=== PATIENT | female | born 1980 | race Caucasian/White ===

== ENCOUNTER 2022-10-14 07:24 | Emergency (ER) | payer BC, SELFPAY ==
--- NOTE | ~2022-10-14 | XR_ITS ---
EXAMINATION: XR HUMERUS, RIGHT CLINICAL INFORMATION: Right humerus pain following a fall. COMPARISON: None available. TECHNIQUE: AP and lateral views of the right humerus. FINDINGS: The bones and soft tissues are normal. No fracture. Imaged portions of the shoulder and elbow are unremarkable. XR/XR humerus RT IMPRESSION: Unremarkable examination.
[2022-10-14 07:33] VITALS: BP 117/94; PULSE 85; RESP 18; TEMP 36.9; O2SAT 98; BMI 31.9
--- NOTE | 2022-10-14 07:59 | ED_ITS ---
HPI - Extremity Problem General Chief complaint: Extremity Injury, Upper Stated complaint: R arm inj 10/13, broken? Time Seen by Provider: 10/14/22 07:42 Source: patient Mode of arrival: ambulatory Limitations: no limitations History of Present Illness HPI Narrative: 42 yo female right hand dominant with no known medical history here with complaints of right shoulder pain which began last evening after a fall. Per patient she was at a wedding, on the dance floor with plans to run and dive with her hands in front of her to slide underneath someone's legs. While running she changed her mind last minute and fall striking her right shoulder on ground while her arm was held in adduction against her body. Denies hitting head or LOC. Patient reports all night her arm was in pain. Took motrin FERRULER. Denies any weakness, numbness, tingling. Does feel her ROM is limited. Related Data Allergies Allergy/AdvReac Type Severity Reaction Status Date / Time No Known Allergies Allergy Verified 10/14/22 07:32 Review of Systems Review of Systems: Yes all other systems are reviewed and are negative Constitutional: Constitutional: Reports no additional constitutional complaints, Denies body ache(s), Denies chills, Denies fever(s), Denies headache(s) and Denies weakness Eyes: Eyes: Reports no additional eye complaints and Denies change in vision ENT: Reports system reviewed and no additional complaints, except as documented, Denies dizziness, Denies headache(s), Denies nasal congestion, Denies nasal discharge and Denies neck pain Cardiovascular: Cardiovascular: Reports no additional cardiovascular complaints, Denies chest pain, Denies leg edema and Denies dyspnea Respiratory: Respiratory: Reports no additional respiratory complaints, Denies cough and Denies dyspnea Gastrointestinal: Gastrointestinal: Reports no additional gastrointestinal complaints, Denies abdominal pain, Denies diarrhea, Denies nausea and Denies vomiting Genitourinary: Genitourinary: Reports no additional female genitourinary complaints and Denies urinary incontinence Musculoskeletal: Musculoskeletal: Reports no additional musculoskeletal complaints, Denies back pain, Reports arthralgias, Denies joint swelling, Reports limited range of motion, Denies neck pain, Denies numbness and Denies tingling Integumentary/Breasts: Skin/Breast: Reports system reviewed and no additional complaints, except as docu and Denies rash Neurologic: Reports system reviewed and no additional complaints, except as documented, Denies Abnormal speech present, Denies dizziness, Denies headache(s), Denies numbness, Denies tingling and Denies weakness PMFSH Past Medical History Attestation statement: The following information was validated with the patient. Source: old records reviewed and nursing notes reviewed Social History Social History Advance Directives: No Physical Exam Vital Signs: Vital Signs: Last Vital Signs Temp 98.5 F 10/14/22 07:33 Pulse 85 10/14/22 07:33 Resp 18 10/14/22 07:33 BP 117/94 H 10/14/22 07:33 Pulse Ox 98 10/14/22 07:33 O2 Del Method Room Air 10/14/22 07:33 BMI result Body Mass Index 31.9 Const: General: cooperative, healthy appearing, comfortable and no acute distress Orientation/consciousness: patient oriented x3 Limitations: no limitations HEENT: Head: Yes normal to inspection Ears: hearing grossly normal bilaterally Eyes: General: appearance normal, both eyes and all related structures Pupils: Equal, round and reactive pupils present Neck: Neck: Yes normal visual inspection Chest: Chest palpation & inspection: normal inspection of the chest Resp: Effort & Inspection: normal respiratory effort Cardio: Peripheral pulses: Peripheral pulses 2+ throughout Back/Spine/Pelvis: Thoracic/Lumbar Spine: thoracic and lumbar spine normal to inspection Skin: General skin exam: no rashes or lesions noted Neuro: General: patient oriented x3, no focal motor deficits and normal sensation to monofilament Cranial nerves: Yes Equal, round and reactive pupils present Cognition (Neuro): normal cognition Speech: No Abnormal speech present Gait exam (Neuro): Normal gait present Motor exam (neuro): 5/5 motor strength present throughout Extrem: Other: Pain on palpation over the right proximal humerus with limited abduction d/t pain. No palpation over the posterior shoulder, clavicle, elbow, wrist or hand. FROM of elbow/wrist/hand. 2+radial/ulnar pulses. Sensation intact distally. General: Yes normal to inspection Course Course Course Narrative: X-ray shows no acute fracture. Likely contusion. I do consider underlying rotator cuff injury as there is some limited range of motion. Therefore I recommend the patient follow-up with her primary care doctor for any persistent symptoms as she may need to see orthopedics outpatient. [facility]ed [facility] signs and symptoms of when to return to the emergency room. Comfortable plan for discharge home. Medical Decision Making Medical Decision Making MDM Narrative: 42 yo female right hand dominant here with right shoulder pain/limited ROM after fall which occurred last evening. On exam TTP over right shoulder with limited abduction Will obtain x-rays Differential Diagnosis Differential Diagnoses: The differential diagnosis associated with the presentation includes fracture, dislocation, sprain, contusion low concern for vascular injury Independent Interpretation I performed an independent interpretation of an: Plain X-Ray Interpretation: I independently reviewed the x-ray and agree with the radiologist report Radiology Impression Discussion of test interpretation with radiology: I have reviewed the radiologist's reading. Radiologist Impression: [address] [address] XRay Report Signed Patient: Maranda Kyle MR#: [id number] : 1980 Acct:[id number] Age/Sex: 42 / F ADM Date: 10/14/22 Loc: .ED Attending Dr: Ordering Physician: Sandra Denney NP Date of Service: 10/14/22 Procedure(s): XR humerus RT Accession Number(s): [id number] cc: Sandra Denney NP~ EXAMINATION: XR HUMERUS, RIGHT CLINICAL INFORMATION: Right humerus pain following a fall.? COMPARISON: None available.? TECHNIQUE: AP and lateral views of the right humerus. FINDINGS: The bones and soft tissues are normal. No fracture. Imaged portions of the shoulder and elbow are unremarkable.? XR/XR humerus RT IMPRESSION: Unremarkable examination. Discharge Plan Discharge Clinical Impression: Contusion of right shoulder Patient Disposition: Home, Self-Care Instructions: Contusion in Adults (ED) Additional Instructions: X-rays show no fracture Ice to the area Sling for comfort Alternate Motrin and Tylenol for pain as needed For any persistent symptoms greater than 5 days follow-up with her primary care doctor as you may need to see orthopedics Referrals: Angel Mac MD [Primary Care Provider] - 1 week Stand Alone Forms: Work/School Release
== END 2022-10-14 09:50 | disposition home or self-care (01) ==
PROVIDERS: Emergency Provider Emergency Medicine Emergency Medical Services; PCP Internal Medicine
DX: S40.011A Contusion of right shoulder, initial encounter (principal); W22.09XA Striking against other stationary object, initial encounter; Y93.41 Activity, dancing; Y92.511 Restaurant or cafe as the place of occurrence of the external cause; Y99.8 Other external cause status
CPT/HCPCS: 73060; 99283

== ENCOUNTER 2024-03-13 12:06 | Outpatient (AMB) | payer BC, SELFPAY ==
[2024-03-13 12:47] VITALS: BP 122/80; PULSE 80; TEMP 36.8; O2SAT 98; BMI 30.5
--- NOTE | 2024-03-13 12:47 | MHC.OFFWIV ---
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 While every effort has been made to ensure accuracy, jewelry consultant errors may have been included. The patient is a 43 year old female who presents to the clinic today with right-sided breast pain for the past 2 weeks. She notes that she had silicone breast implants approximately 26 years ago, and about 2 weeks ago she woke up with what appeared to be a deflation of the right breast implant. Since that time she has developed some pain in the right breast. She is not located any lumps. She recently change her primary care provider over to [facility] as of this morning, and has a new established patient visit scheduled for next year. Review of Systems Const All systems reviewed & are unremarkable except as noted in HPI and below Physical Exam Vital Signs: Last Vital Signs Temp 98.3 F 03/13/24 12:47 Pulse 80 03/13/24 12:47 BP 122/80 03/13/24 12:47 Pulse Ox 98 03/13/24 12:47 BMI result Body Mass Index 30.5 Const General: cooperative, healthy appearing, comfortable, no acute distress and alert Orientation/consciousness: patient oriented x3 Limitations: no limitations Chest Other: Normal breast exam on left with palpable implant in place. Right breast visibly smaller than left, with no palpable implant, and masslike mobile structure approximately 1 cm, irregular borders, about 2 cm from nipple line at 12:00 o'clock, question implant capsule. Breast/axilla palpation: normal palpation of the axillae and no axillary lymphadenopathy Resp Effort & Inspection: normal respiratory effort and able to speak in complete sentences Skin General skin exam: no rashes or lesions noted, elasticity normal and turgor normal Neuro General: patient oriented x3 Psych Appearance: grossly normal Mental Status: mental status grossly normal Speech and movement: Normal speech and movement present Affect: normal affect Assessment & Plan Assessment & Plan (1) Rupture of implant of right breast: Code(s): T85.43XA - Leakage of breast prosthesis and implant, initial encounter Qualifiers: Encounter type: initial encounter Qualified Code(s): T85.43XA - Leakage of breast prosthesis and implant, initial encounter Plan: There is concern for rupture of her right breast implant. Patient does require to have imaging to evaluate for source, they order for this imaging does need to come from her primary care provider. Given that she is just establishing with a new primary care provider, we were able to secure an appointment for tomorrow with her new PCP to review treatment plan including image orders. Plan See above for full details and plan. Coding Level of Care Code Est Pt Level 4 (51120) Diagnoses Rupture of implant of right breast, initial encounter T85.43XA Encounter type: initial encounter
== END 2024-03-13 13:16 | disposition home or self-care (01) ==
PROVIDERS: PCP Internal Medicine; Visit Provider Registered Nurse
DX: T85.43XA Leakage of breast prosthesis and implant, initial encounter (principal)

== ENCOUNTER → 2024-03-13 12:06 | Outpatient (BNVA) | payer BC, SELFPAY | PROVIDERS: PCP Internal Medicine; Visit Provider Registered Nurse ==

== ENCOUNTER 2024-03-14 10:57 | Outpatient (AMB) | payer BC, SELFPAY ==
--- NOTE | 2024-03-14 11:00 | MHC.PC.OV ---
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 She complains of R breast ruptured implant for 2 weeks. Patient would like to see a plastic surgeon but needs to have a mammogram and ultrasound before the appointment can be made. [facility] Surgical History History of arthroscopic surgery of elbow Hx of section S/P breast augmentation Family History Mother Family history of thyroid problem Father No problems noted. 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 1. Little interest or pleasure in doing things: not at all 2. Feeling down, depressed, or hopeless: not at all 3. Trouble falling or staying asleep, or sleeping too much: not at all 4. Feeling tired or having little energy: not at all 5. Poor appetite or overeating: not at all 6. Feeling bad about yourself - or that you are a failure or have let yourself or your family down: not at all 7. Trouble concentrating on things, such as reading the newspaper or watching television: not at all 8. Moving or speaking so slowly that other people could have noticed. Or the opposite - being so fidgety or restless that you have been moving around a lot more than usual: not at all 9. Thoughts that you would be better off or of hurting yourself in some way: not at all Total score: 0 Depression Screening Interpretation: Negative Depression Screening Done: Yes 57290 - PHQ-9 Billing: Yes Source: Developed by Drs. Nathan Chavez, Lillian Velazquez, Kan Quinones and colleagues, with an educational nii from [email or web address]. Thrive Questionnaire Date Thrive assessed: 03/14/24 I am a: Patient What is your living situation today?: I have a steady place to live Within the past 12 months, did the food you bought not last and you didn't have the money to get more?: Never true Within the past 12 months, did you worry whether your food would run out before you got money to buy more?: Never true Do you have trouble paying for medicines?: No Do you have trouble getting transportation to medical appointments?: No Do you have trouble paying your heating and electricity bill?: No Do you have trouble taking care of your child, family member or friend?: No Do you have trouble with day-to-day activities such as bathing, preparing meals, shopping, managing finances, etc.?: No Are you currently unemployed and looking for a job?: No Are you interested in more education?: No Please select the resources that you would like help with: None Currently or been in a relationship where the following occur: No concerns reported THRIVE Score: 0 AUDIT C Alcohol Use Questionnaire (AUDIT-C) 1. How often do you have a drink containing alcohol?: Monthly or less 2. How many drinks containing alcohol do you have on a typical day when you are drinking?: 1 or 2 3. How often do you have six or more drinks on one occasion?: Never Total Score: 1 Score Reviewed/Action Taken: Yes BOSTON-7 AMB Questionnaire BOSTON-7 Date BOSTON - 7 assessed: 03/14/24 Feeling nervous, anxious, or on edge: 0 = Not at all Not being able to stop or control worryin = Not at all Worrying too much about different things: 0 = Not at all Trouble relaxin = Not at all Being so restless that it is hard to sit still: 0 = Not at all Becoming easily annoyed or irritable: 0 = Not at all Feeling afraid as if something awful might happen: 0 = Not at all Total BOSTON-7 score (0-4 normal; 5-9 mild; 10-14 moderate; 15-21 severe): 0 Source: Developed by Drs. Nathan Chavez, Lillian Velazquez, Kan Quinones and colleagues, with an educational nii from [email or web address]. BOSTON-7 Assessment Billing BOSTON-7 Assessment Tool: BOSTON-7 Assessment 06853 Review of Systems Const All systems reviewed & are unremarkable except as noted in HPI and below Card Reports no additional complaints Resp Reports no additional complaints GI Reports no additional complaints Reports no additional complaints Musc Reports no additional complaints Physical exam (Primary Care) Vital Signs: Last Vital Signs Pulse 72 03/14/24 11:01 BP 118/72 03/14/24 11:01 Pulse Ox 98 03/14/24 11:01 Oxygen Delivery Method Room Air 03/14/24 11:01 BMI result Body Mass Index 30.6 Tobacco/Smoking Status: Tobacco use Status Tobacco use date assessed 03/14/24 03/14/24 11:04 Patient Tobacco Use Status Never used Tobacco 03/14/24 11:13 e-Cigarette/Vaping Use Never Used 03/14/24 11:13 PHQ-9: PHQ-9 Score PHQ-9: Total score 0 03/14/24 11:25 Depression Screening Interpretation: Negative Thrive Assessment: Date of Thrive Assessment Date Thrive assessed 03/14/24 03/14/24 11:05 Currently or been in a relationship where the following occur: No concerns reported Const General: no acute distress HENMT Face and sinus: Yes normal facial exam Eyes General: appearance normal, both eyes and all related structures Neck Neck: Yes supple Chest Breast/axilla inspection: abnormal inspection of the breast (There is decreased size and irregularity of the right breast, no masses) Breast/axilla palpation: normal palpation of the axillae and no axillary lymphadenopathy Resp Effort & Inspection: normal respiratory effort Auscultation: clear to auscultation bilaterally Cardio Rhythm: regular rhythm Heart sounds: S1 normal heart sound present and S2 normal heart sound present Coding Level of Care Code New Pt Level 3 (03531) Diagnoses Normal pelvic exam Z01. Ruptured right breast implant T85.43XA Additional Codes BOSTON-7 Assessment Billing - BOSTON-7 Assessment Tool: OBSTON-7 Assessment 26631 ([id number]) Assessment & Plan Assessment & Plan (1) Normal pelvic exam: Comment: slip filler pap Code(s): Z.419 - Encounter for gynecological examination (general) (routine) without abnormal findings Category: Medical Plan: Patient is established with slip filler (2) Ruptured right breast implant: Code(s): T85.43XA - Leakage of breast prosthesis and implant, initial encounter Category: Medical Plan: Refer for breast mammogram and right breast ultrasound and patient will be referred to plastic surgeon of her choice Orders: Orders Complete Blood Count Auto Diff Today Z01419 - Encounter for gynecological examination (general) (routine) without abnormal findings Comprehensive Plummer. Panel Fast Today Z01419 - Encounter for gynecological examination (general) (routine) without abnormal findings MM screening mammo unilat LT Today T85.43XA - Leakage of breast prosthesis and implant, initial encounter, Z12.31 - Encounter for screening mammogram for malignant neoplasm of breast US breast RT complete Today T85.43XA - Leakage of breast prosthesis and implant, initial encounter Lipid Panel Today [id number] - Encounter for gynecological examination (general) (routine) without abnormal findings TSH reflex Free T4 Today Z01.419 - Encounter for gynecological examination (general) (routine) without abnormal findings UA w Microscopic Today Z01.419 - Encounter for gynecological examination (general) (routine) without abnormal findings MM diagnostic mammo unilat RT Today T85.43XA - Leakage of breast prosthesis and implant, initial encounter
[2024-03-14 11:01] VITALS: BP 118/72; PULSE 72; O2SAT 98; BMI 30.6
== END 2024-03-14 15:54 | disposition home or self-care (01) ==
PROVIDERS: PCP Internal Medicine; Visit Provider Internal Medicine
DX: T85.43XD Leakage of breast prosthesis and implant, subsequent encounter (principal)

== ENCOUNTER → 2024-03-14 10:57 | Outpatient (BNVA) | payer BC, SELFPAY | PROVIDERS: PCP Internal Medicine; Visit Provider Internal Medicine | DX: T85.43XA Leakage of breast prosthesis and implant, initial encounter (principal) | CPT/HCPCS: 96127 ==

== ENCOUNTER 2024-03-28 14:59 | Outpatient (REF) | payer BC, SELFPAY ==
--- NOTE | ~2024-03-28 | MR_ITS ---
EXAMINATION: MR BREAST WITHOUT , BILATERAL CLINICAL INFORMATION: Leakage of breast prosthesis and implant, initial encounter. COMPARISON: None available. TECHNIQUE: Imaging was performed with a dedicated breast coil. bilateral axial T1 and bilateral axial T2 weighted and STIR sequences were obtained. FINDINGS: The patient's fibroglandular tissue is heterogeneously dense. LEFT BREAST: There is an intact retropectoral saline implant without evidence of rupture. There is an oval T2 bright mass at 3 o'clock retroareolar position measuring 0.9 cm. This has characteristics of a fibroadenoma. (MR sequence #3, image 38/70). The surrounding tissue demonstrates no other masses or suspicious findings in this noncontrast study. There are no additional findings on T2-weighted imaging. RIGHT BREAST: There is a collapsed retropectoral saline implant sitting along the chest wall. The surrounding tissue demonstrates no definite mass or suspicious finding on this noncontrast study. There are no additional findings on T2-weighted imaging. There is no suspicious internal mammary chain or axillary adenopathy. Limited views of the chest and abdomen are unremarkable. MR/MR breast BI wo con IMPRESSION: 1. Right breast with collapsed retropectoral saline implant. Left implant is intact. 2. Oval benign-appearing mass left breast retroareolar 3 o'clock. ASSESSMENT: LEFT BREAST: BI-RADS 2 benign RIGHT BREAST: BI-RADS 2 benign RECOMMENDATIONS: Clinical follow up for the collapsed right saline implant. Electronically signed by: Marek Henry MD 04/16/2024 01:00 PM [facility]
== END 2024-03-28 15:00 | disposition home or self-care (01) ==
LOC: HO.MRI 14:59
PROVIDERS: Visit Provider Internal Medicine
DX: T85.43XA Leakage of breast prosthesis and implant, initial encounter (principal)
CPT/HCPCS: 77047

== ENCOUNTER 2025-02-11 14:47 | Outpatient (AMB) | payer BC, SELFPAY ==
--- NOTE | 2025-02-11 14:51 | A.OFFVIS_ITS ---
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 Supervisor Throwing Department: Supervisor Throwing Department Present (Renetta) Accompanied by: Self / Same As Patient Allergies No Known Allergies Allergy (Verified 02/11/25 14:57) Is last menstrual period known: Yes Last menstrual period: 01/28/25 Post menopausal: No Patient : No HPI Comments Details: Patient is a premenopausal woman presenting for new patient annual examination. 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 She does not experience any hot flashes. Menses every other monthly menses, heavy 2-3d. History of , w/not very improvement. Currently is sexually active. She denies vaginal itching or irritation. STI screening offered; she accepts. She tries to eat healthy and stays active with walking. Denies family history of breast, ovarian or colon cancer. Last pap smear unknown greater than 5 years ago, negative. Mammogram: 2023. History of breast calcification previous scans done at [facility]. History of breast implants, right side collapse a year ago has appointment 03/21/2025 for removal of bilateral implants with her plastic surgeon Dr. Misbah Samano. [facility] Medical History Hirsutism Abnormal uterine bleeding (AUB) Surgical History History of arthroscopic surgery of elbow Hx of section S/P breast augmentation Family History Mother Family history of thyroid problem Father No problems noted. 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 Current occupational exposures/hazards: No Cognitive needs: No Hearing needs: No Vision needs: No Female Reproductive History Menstrual Age of Menarche: 11 Duration of menses: 3-5 days Date of last menstrual period: 01/28/25 control method: none Total pregnancies: 3 Full term: 3 History of abnormal pap smear: No Date of Mammogram: 08/09/21 (Birad 2 Breast MRI 03/28/24) Review of Systems Const All systems reviewed & are unremarkable except as noted in HPI and below Reports as per HPI Eyes Reports no additional complaints ENT Reports no additional complaints Card Reports no additional complaints Resp Reports no additional complaints GI Reports as per HPI and Reports no additional complaints Reports as per HPI Musc Reports no additional complaints Skin/Breast Reports as per HPI Neuro Reports no additional complaints Psych Reports no additional complaints Endo Reports no additional complaints Titi/Lymph Reports no additional complaints Aller/Immun Reports no additional complaints Physical Exam Vital Signs: Last Vital Signs BP 118/72 02/11/25 15:00 BMI result Body Mass Index 29.9 Const General: cooperative, healthy appearing, no acute distress, well developed and alert Orientation/consciousness: patient oriented x3 HEENT Head: Yes normal to inspection Eyes General: appearance normal, both eyes and all related structures Neck Neck: Yes normal visual inspection Thyroid: Thyroid normal Chest Other: Asymmetrical right side implant not palpable, areola hair prominent and course Chest palpation & inspection: normal inspection of the chest and other (no puckering, dimpling, peau de orange, retraction, discharge, masses) Breast/axilla inspection: normal inspection of the breasts Breast/axilla palpation: normal palpation of the breasts Resp Effort & Inspection: normal respiratory effort GI Inspection: Yes normal to inspection and Yes scar Palpation (GI): Soft to palpation Rectal Exam - Female: deferred General: Yes bladder normal to palpation External Female Exam: normal external appearance and normal appearance of the urethra Speculum Exam - Vagina: normal appearance of the vagina, normal palpation and normal vaginal discharge Speculum Exam - Cervix: normal appearance of the cervix and normal palpation Bimanual exam- vagina & uterus: normal bimanual exam, normal palpation, uterine size normal, bladder normal to palpation, normal palpation and non-tender Bimanual Exam- Adnexa, other: no masses Skin General skin exam: no rashes or lesions noted Rashes: no rashes Neuro General: patient oriented x3 Cognition (Neuro): normal cognition Extrem General: Yes normal to inspection Psych Attitude: cooperative Thought process: Normal thought process present Assessment & Plan Assessment & Plan (1) Encounter for well woman exam with routine gynecological exam: Code(s): Z01.419 - Encounter for gynecological examination (general) (routine) without abnormal findings Category: Medical Plan: Discussed: Current recommendations for pap smears per ASCCP guidelines. Breast awareness and periodic breast exams. Mammogram yearly. Discussed perimenopausal changes and provided literature information and website resources. Maintain a healthy lifestyle including a well balanced diet and routine exercise. Patient verbalizes understanding and agrees to the plan of care. She was given opportunity to ask questions and all questions were answered to the best of my ability. 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 This note is constructed using voice recognition software. While every effort has been made to ensure accuracy, lease attendant errors may have been included. (2) Abnormal uterine bleeding (AUB): Code(s): N93.9 - Abnormal uterine and vaginal bleeding, unspecified Category: Medical Plan: Discuss workup for AUB to include pelvic ultrasound and lab work, cervical cultures and Pap smear. Endometrial biopsy if indicated. The patient expressed understanding and agreement with the plan of care. All of her questions and concerns were addressed to the best of my ability. (3) Hirsutism: Code(s): L68.0 - Hirsutism Category: Medical Plan: Total time I personally spent on visit and management today: ?25 minutes. Time spent included review of pertinent office notes in the electronic health record; review of laboratory and imaging results; review of personal family medical history; performing physical exam; discussing diagnosis and plan of care with the patient; documenting the encounter in the EMR. Plan Discussed lab work await results for final plan of care. The patient expressed understanding and agreement with the plan of care. All of her questions and concerns were addressed to the best of my ability. This note is constructed using voice recognition software. While every effort has been made to ensure accuracy, lease attendant errors may have been included. Orders: Orders HPV High risk Today Z01.419 - Encounter for gynecological examination (general) (routine) without abnormal findings Pap Smear Today Z01.419 - Encounter for gynecological examination (general) (routine) without abnormal findings Bacterial Vaginosis Panel Today N93.9 - Abnormal uterine and vaginal bleeding, unspecified CT NG by PCR Vag/Cerv Today N93.9 - Abnormal uterine and vaginal bleeding, unspecified Prolactin Today L68.0 - Hirsutism DHEA Sulfate Today L68.0 - Hirsutism US pelvic and transvaginal Today N93.9 - Abnormal uterine and vaginal bleeding, unspecified Testosterone, Free/Total Today L68.0 - Hirsutism 17 Hydroxyprogesterone Today L68.0 - Hirsutism Coding Level of Care Code New Pt Level 2 (70165) New Pt Prev Care 40-64y(20316) Diagnoses Encounter for well woman exam with routine gynecological exam Z01.419 Abnormal uterine bleeding (AUB) N93.9 Hirsutism L68.0
[2025-02-11 15:00] VITALS: BP 118/72; BMI 29.9
--- OUTSIDE RECORDS SUMMARY | 2025-02-11 18:23 | XMS_ITS | Clinical Summary ---
Author Organization [facility] Address [address] [place], [place] [id number] Phone Care Team Providers Care Supervisor Photocomposition Name Role Phone Melissa Varghese MD Primary Care Provider [phone] Allergies No known active allergies Medications No known medications Family History Medical History Relation Comments Lung cancer Father Relation Status Comments Father Mother Alive Social History Tobacco Use Types Packs/Day Years Used Date Smoking Tobacco: Never Smokeless Tobacco: Never Tobacco Cessation:Counseling Given: Not Answered Alcohol Use Standard Drinks/Week Comments Yes 0 (1 standard drink = 0.6 oz pur e alcohol) less than 1-2 week Education Answer Date Recorded Are you interested in more education? Not on serg e 05/27/2024 Are you concerned about learning? Not on file 05/27/2024 No 05/27/2024 No 05/27/2024 Digital Access Answer Date Recorded No 05/27/2024 No 05/27/2024 Reliable internet access at home? Not on file 05/27/2024 Device with a working camera? Not on file Comments Unknown Sex and Gender Information Value Date Recorded Sex Assigned at Not on file Legal Sex Female 12:01 PM EST Gender Identity Not on file Sexual Orientation Not on file Last Filed Vital Signs Vital Sign Reading Time Taken Comments Blood Pressure 115/78 10/06/2024 1:16 PM EDT Pulse 82 10/06/2024 1:16 PM EDT Temperature - - Respiratory Rate - - Oxygen Saturation - - Inhaled Oxygen Concentration - - Weight 78.2 kg (172 lb 6.4 oz) 10/06/2024 1:16 P M EDT Height 158.8 cm (5' 2.5 ) 10/06/2024 1:16 PM EDT Body Mass Index 31.03 10/06/2024 1:16 PM EDT Plan of Treatment Upcoming Encounters Date Type Department Care Team (Late st Contact Info) Description 02/19/2025 11:00 AM EDT Procedure visit [facility] Plastic Surgery [address] [place] [address] Misbah Samano MD [address] [place] [id number] Theresa Shepherd PA-C [address] [place] [address], [address] [address] 02/26/2025 3:30 PM EDT Office Visit [facility] Plastic Surgery [address] [place] [address] Theresa Shepherd PA-C [address] [place] [phone] Health Maintenance Due Date Last Done Comments Adult Td,Tdap Booster 1978 LIPID PANEL 1978 DEPRESSION SCREENING 1990 HEPATITIS C SCREENING 1996 HIV ONE-TIME SCREENING (18-6 5 YEARS) 1996 PAP SMEAR 1999 SCREENING FOR DIABETES 2013 MAMMOGRAM 2018 COLOGUARD 2023 COLONOSCOPY 2023 COLORECTAL CANCER SCREENING 2023 FIT TEST 2023 FOBT 2023 SIGMOIDOSCOPY 2023 VIRTUAL COLONOSCOPY 2023 INFLUENZA VACCINE (#1) 2024 COVID-19 VACCINE ( - 2023-2 5 season) 2025 SMOKING STATUS SCREENING (On ce After 26 Yrs) Completed 10/06/2024 HEPATITIS A VACCINES Aged Out No long er eligible based on patient's age to complete this topic HIB VACCINES Aged Out No longer eligi ble based on patient's age to complete this topic MENINGOCOCCAL VACCINES (ACWY) Aged Out No longer eligible based on patient's age to complete this topic MENINGOCOCCAL VACCINES (B) Aged Out N o longer eligible based on patient's age to complete this topic PNEUMOCOCCAL VACCINES (0-49 years) Aged Out No longer eligible based on patient's age to complete this topic Medical Devices Not on file [place] [address] [facility] [address] [place] [address] [place] [address] [facility] Care Teams Supervisor Photocomposition Relationship Specialty Start Date End Date Melissa Varghese MD [address] [facility] [place] [address] PCP - General Internal Medicine 05/27/24 Additional Source Comments The information contained in this document represents components of the legal health record. It is not the complete legal health record.[facility]
== END 2025-02-12 08:39 | disposition home or self-care (01) ==
LOC: HO.HWS 14:48
PROVIDERS: PCP Internal Medicine; Visit Provider Advanced Practice Midwife
DX: Z01.419 Encounter for gynecological examination (general) (routine) without abnormal findings (principal); N93.9 Abnormal uterine and vaginal bleeding, unspecified; L68.0 Hirsutism
CPT/HCPCS: 99202; 99386; 99459

== ENCOUNTER 2025-02-11 14:47 | Outpatient (REF) | payer BC, SELFPAY ==
[2025-02-12 09:07] LABS: Bacterial Vaginosis PCR NEGATIVE (Negative); Candida Group PCR NOT DETECTED (Not Detect); Candida glab krusei PCR NOT DETECTED (Not Detect); Trichomonas vaginalis PCR NOT DETECTED (Not Detect)
[2025-02-12 09:40] LABS: CT PCR NOT DETECTED (Not Detect.); NG PCR NOT DETECTED (Not Detect.)
== END 2025-02-11 14:48 | disposition home or self-care (01) ==
LOC: HO.LNP 14:47
PROVIDERS: PCP Internal Medicine; Visit Provider Advanced Practice Midwife
DX: Z01.419 Encounter for gynecological examination (general) (routine) without abnormal findings (principal); N93.9 Abnormal uterine and vaginal bleeding, unspecified; L68.0 Hirsutism; Z20.2 Contact with and (suspected) exposure to infections with a predominantly sexual mode of transmission
CPT/HCPCS: 81515; 87491; 87591; 87626; 88175

== ENCOUNTER 2025-02-11 15:36 | Outpatient (REF) | payer BC, SELFPAY | END 2025-02-11 15:37 | disposition home or self-care (01) | LOC: HO.LAB 15:36 | PROVIDERS: Visit Provider Advanced Practice Midwife | DX: Z13.89 Encounter for screening for other disorder (principal) ==

== ENCOUNTER 2025-02-16 09:14 | Outpatient (REF) | payer BC, SELFPAY ==
[2025-02-16 09:33] LABS: MANUAL DIFF FLAG NO
[2025-02-16 10:32] LABS: Hematocrit 43.8 % (37.0-47.0); Hemoglobin 14.3 g/dl (12.0-16.0); Imm Gran Abs Auto 0.02 X10*3/uL (0.00-0.03); Imm Gran Pct Auto 0.4 % (0.0-0.4); Lymphocytes Absolute Auto 1.8 X10*3/uL (1.2-4.9); Mean Corpuscular HGB Conc 32.6 g/dl (31.0-35.0); Mean Corpuscular Hemoglobin 27.9 pg (27.0-33.0); Mean Corpuscular Volume 85.4 fL (80.0-98.0); NRBC Abs Auto 0.000 X10*3/uL (0.0-0.012); NRBC Pct Auto 0.0 /100WBC (0.0-0.2); Platelet Count 209 X10*3/uL (160-400); Red Blood Count 5.13 X10*6/uL (4.20-5.50); White Blood Count 5.7 X10*3/uL (4.8-10.8)
[2025-02-16 10:32] LABS: Appearance Urine Clear; Glucose Urine UA Negative (Negative); PH 6.5 (5.0-9.0); Specific Gravity - Urine 1.010 (1.005-1.025); UMIC TRIGGER UA YES
--- OUTSIDE RECORDS SUMMARY | 2025-02-16 10:50 | XMS_ITS | Clinical Summary ---
Author Organization [facility] Address [address] [place], [place] [id number] Phone Care Team Providers Care Supervisor Slitting And Shipping Name Role Phone Melissa Varghese MD Primary Care Provider [phone] Allergies No known active allergies Medications No [...] Description 02/19/2025 11:00 AM EDT Procedure visit [facility] Plastic Surgery [address] [place] [address] Misbah Samano MD [address] [place] [id number] Theresa Shepherd PA-C [address] [place] [address], [address] [address] [email or web address] 02/26/2025 3:30 PM EDT Office Visit [facility] Plastic Surgery [address] [place] [address] Theresa Shepherd PA-C [address] [place] [phone] [email or web address] Health Maintenance Due Date Last Done Comments [...] topic Medical Devices Not on [place] [address] [address] [place] [address] [facility] [place] [address] [place] [address] [place] [address] [facility] Care Teams Supervisor Slitting And Shipping Relationship Specialty Start Date End Date Melissa Varghese MD [address] [place] [address] PCP - General Internal Medicine 05/27/24 Additional Source Comments The information contained in this document represents components of the legal health record. It is not the complete legal health record.[facility]
[2025-02-16 11:21] LABS: Alanine Aminotransferase 30 U/L (0-31); Albumin Level 4.6 g/dL (3.5-5.0); Alkaline Phosphatase 87 U/L (39-117); Anion Gap 9 (12-20); Aspartate Amino Transferase 22 U/L (5-31); Blood Urea Nitrogen 14 mg/dL (9-16); Calcium 9.3 mg/dL (8.4-10.2); Carbon Dioxide 27 mmol/L (22-29); Chloride 108 mmol/L (96-108); Cholesterol 212 mg/dL (<200); Estimated Glomerular Filt Rate > 60; HDL Cholesterol 56 mg/dL (>40); Potassium 4.2 mmol/L (3.3-5.1); Sodium 140 mmol/L (135-145); Total Protein 7.3 g/dL (6.5-8.0); Triglycerides 53 mg/dL (<150)
[2025-02-23 15:54] LABS: Testosterone, Free 3.3 pg/mL (0.1-6.4)
== END 2025-02-16 09:15 | disposition home or self-care (01) ==
LOC: HO.LAB 09:14
PROVIDERS: Absent Provider Advanced Practice Midwife; PCP Internal Medicine; Visit Provider Internal Medicine
DX: Z01.419 Encounter for gynecological examination (general) (routine) without abnormal findings (principal); Z13.29 Encounter for screening for other suspected endocrine disorder; Z13.6 Encounter for screening for cardiovascular disorders; L68.0 Hirsutism
CPT/HCPCS: 36415; 80053; 80061; 81001; 82627; 83498; 84146; 84402; 84403; 84443; 85025

== ENCOUNTER 2025-04-09 15:49 | Outpatient (AMB) | payer BC, SELFPAY ==
--- NOTE | 2025-04-09 15:51 | A.OFFVIS_ITS ---
Vital Signs 04/09/25 16:14 Height 5 ft 3 in Weight 169 lb BMI 29.9 BP 106/62 Blood Pressure Location Rt brachial Position Sitting Intake Visit Reasons: us follow up Intake Note: u/s not done. 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 Last 2 cycles she reports lasted 3-4 days heavy for the 1st day. Ultrasound needed to be rescheduled, patient is waiting for a call back. TSH- 1.57, H/H 14.3/48.6. [facility] Medical History Hirsutism Abnormal uterine bleeding (AUB) Surgical History History of arthroscopic surgery of elbow Hx of section S/P breast augmentation Family History Mother Family history of thyroid problem Father No problems noted. 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 Current occupational exposures/hazards: No Cognitive needs: No Hearing needs: No Vision needs: No Female Reproductive History Menstrual Age of Menarche: 11 Date of last menstrual period: 04/05/25 control method: none Date of last pap smear: 02/12/25 History of abnormal pap smear: No Date of Mammogram: 08/09/21 Review of Systems Const All systems reviewed & are unremarkable except as noted in HPI and below Endo Reports no additional complaints Physical Exam Const General: cooperative, healthy appearing and no acute distress Psych Appearance: well kempt Attitude: cooperative Thought process: Normal thought process present Assessment & Plan Assessment & Plan (1) Abnormal uterine bleeding (AUB): Code(s): N93.9 - Abnormal uterine and vaginal bleeding, unspecified Category: Medical Plan Reviewed lab work-normal ranges. Patient provided information to recur rescheduled for a pelvic ultrasound follow up pending results. Monitor menses. Report any abnormal changes. The patient expressed understanding and agreement with the plan of care. All of her questions and concerns were addressed to the best of my ability. This note is constructed using voice recognition software. While every effort has been made to ensure accuracy, envelope machine adjuster errors may have been included. Coding Level of Care Code Est Pt Level 2 (31477) Diagnoses Abnormal uterine bleeding (AUB) N93.9
[2025-04-09 16:14] VITALS: BP 106/62; BMI 29.9
--- OUTSIDE RECORDS SUMMARY | 2025-04-09 18:39 | XMS_ITS | Clinical Summary ---
Author Organization [facility] Address [address] [place], [place] [id number] Phone Care Team Providers Care Sewer And Drain Technician Name Role Phone Melissa Varghese MD Primary Care Provider [phone] Allergies No known active allergies Medications No known medications Encounters Date Type Department Care Team Description 03/12/2025 Telephone [facility] Plastic Surgery [address] [place] [address] Neema Musa CMA 02/26/2025 3:30 PM EDT Office Visit [facility] Plastic Surgery [address] [place] [address] Theresa Shepherd PA-C Aftercare following surgery of the skin or subcutaneous tissue (Primary Dx) 02/20/2025 Telephone [facility] Plastic Surgery [address] [place] [address] Neema Musa CMA Post-op 02/19/2025 11:00 AM EDT Procedure visit [facility] Plastic Surgery [address] [place] [address] Misbah Samano MD Zarba, Nicole A, PA-C Breast implant rupture, initial encounter (Primary Dx) from Last 3 Months Family History Medical History Relation Comments Lung [...] 10/06/2024 1:16 PM EDT Plan of Treatment Health Maintenance Due Date Last Done Comments Adult Td,Tdap Booster 1978 LIPID PANEL 1978 DEPRESSION SCREENING 1990 HEPATITIS C SCREENING 1996 HIV ONE-TIME SCREENING (18-6 5 YEARS) 1996 PAP SMEAR 1999 SCREENING FOR DIABETES 2013 MAMMOGRAM 2018 COLOGUARD 2023 COLONOSCOPY 2023 COLORECTAL CANCER SCREENING 2023 FIT TEST 2023 FOBT 2023 SIGMOIDOSCOPY 2023 VIRTUAL COLONOSCOPY 2023 INFLUENZA VACCINE (#1) 2024 COVID-19 VACCINE (2024-2 6 season) 2025 SMOKING STATUS SCREENING (On ce After 26 Yrs) Completed 10/06/2024 HEPATITIS A VACCINES Aged Out No long er eligible based on patient's age to complete this topic HIB VACCINES Aged Out No longer eligi ble based on patient's age to complete this topic IPV VACCINES Aged Out No longer eligi ble [...] topic Medical Devices Not on file [place] [address] [place] [address] [facility] [address] [facility] Care Teams Sewer And Drain Technician Relationship Specialty Start Date End Date Melissa Varghese MD [address] [place] [address] PCP - General Internal Medicine 05/27/24 Additional Source Comments The information contained in this document represents components of the legal health record. It is not the complete legal health record.[facility]
== END 2025-04-09 16:21 | disposition home or self-care (01) ==
LOC: HO.HWS 15:50
PROVIDERS: PCP Internal Medicine; Visit Provider Advanced Practice Midwife
DX: N93.9 Abnormal uterine and vaginal bleeding, unspecified (principal)
CPT/HCPCS: 99212

== ENCOUNTER 2025-05-01 09:03 | Outpatient (AMB) | payer BC, SELFPAY ==
[2025-05-01 09:06] VITALS: BP 122/80; PULSE 79; RESP 16; TEMP 36.7; O2SAT 98; BMI 30.8
--- NOTE | 2025-05-01 09:06 | MHC.PC.OV ---
Vital Signs 05/01/25 09:06 Height 5 ft 3 in Weight 174 lb BMI 30.8 BP 122/80 Blood Pressure Location Lt brachial Position Sitting Respiration 16 Pulse 79 Pulse Source Pulse Oximeter Temp 98.0 F Temp Source Oral Pulse Oximetry (%) 98 Oxygen Delivery Method Room Air Intake Visit Reasons: pe Intake Note: Pt is here today for a PE. Allergies No Known Allergies Allergy (Verified 05/01/25 09:09) Medication List - Last Reconciled 05/01/25 by Melissa Varghese MD No Known Home Meds Tobacco use date assessed: 05/01/25 Dental Screening Dental Screen Date: 05/01/25 Did you have a dental visit in the last 12 months?: Yes Did you have a dental problem in the last 6 months where you did not have access to dental care?: No Was dental information given to patient?: Patient has dentist HPI pe HPI Details Patient presents for the follow-up she broke her left middle toe hitting her foot against the rock while on cruise in [facility] last week. She has been wearing a hard shoe she and denies any pain or swelling. [facility] Medical History (Updated 05/01/25 @ 10:02 by Melissa Varghese MD) Colon cancer screening Toe fracture, left Ruptured right breast implant Normal pelvic exam Hirsutism Abnormal uterine bleeding (AUB) Surgical History History of arthroscopic surgery of elbow Hx of section S/P breast augmentation Family History Mother Family history of thyroid problem Father No problems noted. 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 1. Little interest or pleasure in doing things: not at all 2. Feeling down, depressed, or hopeless: not at all 3. Trouble falling or staying asleep, or sleeping too much: not at all 4. Feeling tired or having little energy: not at all 5. Poor appetite or overeating: not at all 6. Feeling bad about yourself - or that you are a failure or have let yourself or your family down: not at all 7. Trouble concentrating on things, such as reading the newspaper or watching television: not at all 8. Moving or speaking so slowly that other people could have noticed. Or the opposite - being so fidgety or restless that you have been moving around a lot more than usual: not at all 9. Thoughts that you would be better off or of hurting yourself in some way: not at all Total score: 0 Depression Screening Interpretation: Negative Depression Screening Done: Yes 04753 - PHQ-9 Billing: Yes Source: Developed by Drs. Nathan Chavez, Lillian Velazquez, Kan Quinones and colleagues, with an educational nii from [employer]. Thrive Questionnaire Date Thrive assessed: 05/01/25 I am a: Patient What is your living situation today?: I have a steady place to live Within the past 12 months, did the food you bought not last and you didn't have the money to get more?: Never true Within the past 12 months, did you worry whether your food would run out before you got money to buy more?: Never true Do you have trouble paying for medicines?: No Do you have trouble getting transportation to medical appointments?: No Do you have trouble paying your heating and electricity bill?: No Do you have trouble taking care of your child, family member or friend?: No Do you have trouble with day-to-day activities such as bathing, preparing meals, shopping, managing finances, etc.?: No Are you currently unemployed and looking for a job?: No Are you interested in more education?: No Please select the resources that you would like help with: None Currently or been in a relationship where the following occur: No concerns reported THRIVE Score: 0 AUDIT C Alcohol Use Questionnaire (AUDIT-C) 1. How often do you have a drink containing alcohol?: Monthly or less 2. How many drinks containing alcohol do you have on a typical day when you are drinking?: 1 or 2 3. How often do you have six or more drinks on one occasion?: Never Total Score: 1 BOSTON-7 AMB Questionnaire BOSTON-7 Date BOSTON - 7 assessed: 05/01/25 Feeling nervous, anxious, or on edge: 0 = Not at all Not being able to stop or control worryin = Not at all Worrying too much about different things: 0 = Not at all Trouble relaxin = Not at all Being so restless that it is hard to sit still: 0 = Not at all Becoming easily annoyed or irritable: 0 = Not at all Feeling afraid as if something awful might happen: 0 = Not at all Total BOSTON-7 score (0-4 normal; 5-9 mild; 10-14 moderate; 15-21 severe): 0 Source: Developed by Drs. Nathan Chavez, Lillian Velazquez, Kan Quinones and colleagues, with an educational nii from [employer]. BOSTON-7 Assessment Billing BOSTON-7 Assessment Tool: BOSTON-7 Assessment 47526 Review of Systems Const All systems reviewed & are unremarkable except as noted in HPI and below Eyes Reports no additional complaints ENT Reports no additional complaints Card Reports no additional complaints Resp Reports no additional complaints GI Reports no additional complaints Reports no additional complaints Physical exam (Primary Care) Vital Signs: Last Vital Signs Temp 98.0 F 05/01/25 09:06 Pulse 79 05/01/25 09:06 Resp 16 05/01/25 09:06 BP 122/80 05/01/25 09:06 Pulse Ox 98 05/01/25 09:06 Oxygen Delivery Method Room Air 05/01/25 09:06 BMI result Body Mass Index 30.8 Tobacco/Smoking Status: Tobacco use Status Tobacco use date assessed 05/01/25 05/01/25 09:12 Patient Tobacco Use Status Never used Tobacco 05/01/25 09:07 e-Cigarette/Vaping Use Never Used 05/01/25 09:07 PHQ-9: PHQ-9 Score PHQ-9: Total score 0 05/01/25 09:12 Depression Screening Interpretation: Negative Thrive Assessment: Date of Thrive Assessment Date Thrive assessed 05/01/25 05/01/25 09:12 Currently or been in a relationship where the following occur: No concerns reported Const General: no acute distress HENMT Head: Yes normal to inspection Face and sinus: Yes normal facial exam Mouth: Normal oral and palatal mucosa present Throat: Yes posterior oropharynx normal Eyes General: appearance normal, both eyes and all related structures Neck Neck: Yes no lymphadenopathy and Yes supple Resp Effort & Inspection: normal respiratory effort Auscultation: clear to auscultation bilaterally Cardio Rhythm: regular rhythm Heart sounds: S1 normal heart sound present and S2 normal heart sound present GI Inspection: Yes normal to inspection Palpation (GI): Soft to palpation Percussion: Yes normal to percussion Auscultation: normal bowel sounds Coding Level of Care Code Est Pt Prev Care 40-64y(12267) Diagnoses Toe fracture, left S92.912A Annual physical exam Z00.00 Additional Codes BOSTON-7 Assessment Billing - BOSTON-7 Assessment Tool: BOSTON-7 Assessment 04214 ([id number]) PHQ-9 - 77278 - PHQ-9 Billing: Yes ([id number]) Assessment & Plan Assessment & Plan (1) Toe fracture, left: Code(s): S92.912A - Unspecified fracture of left toe(s), initial encounter for closed fracture Category: Medical Plan: Repeat foot x-ray in 2 weeks (2) Annual physical exam: Code(s): Z00.00 - Encounter for general adult medical examination without abnormal findings Category: Medical Plan: Well-balanced diet regular physical activity discussed with the patient. She will schedule mammogram and had negative Cologuard and Pap smear Orders: Orders MM screening mammo BI Today Z12.31 - Encounter for screening mammogram for malignant neoplasm of breast XR foot LT 2V Today S92.912A - Unspecified fracture of left toe(s), initial encounter for closed fracture Complete Blood Count Auto Diff 1 Year Z00.00 - Encounter for general adult medical examination without abnormal findings TSH reflex Free T4 1 Year Z00.00 - Encounter for general adult medical examination without abnormal findings UA w Microscopic 1 Year Z00.00 - Encounter for general adult medical examination without abnormal findings Comprehensive [place]. Panel Fast 1 Year Z00.00 - Encounter for general adult medical examination without abnormal findings Lipid Panel 1 Year Z00.00 - Encounter for general adult medical examination without abnormal findings Vitamin D 25-OH Total 1 Year Z00.00 - Encounter for general adult medical examination without abnormal findings
== END 2025-05-01 10:07 | disposition home or self-care (01) ==
LOC: HO.HMCC 09:04
PROVIDERS: PCP Internal Medicine; Visit Provider Internal Medicine
DX: Z00.00 Encounter for general adult medical examination without abnormal findings (principal); S92.912A Unspecified fracture of left toe(s), initial encounter for closed fracture

== ENCOUNTER → 2025-05-01 09:03 | Outpatient (BNVA) | payer BC, SELFPAY | PROVIDERS: PCP Internal Medicine; Visit Provider Internal Medicine | DX: Z00.00 Encounter for general adult medical examination without abnormal findings (principal); S92.912A Unspecified fracture of left toe(s), initial encounter for closed fracture | CPT/HCPCS: 96127 ==

== ENCOUNTER 2025-05-15 09:14 | Outpatient (REF) | payer BC, SELFPAY ==
--- NOTE | ~2025-05-15 | XR_ITS ---
EXAMINATION: XR FOOT, LEFT CLINICAL INFORMATION: S92.912A - Unspecified fracture of left toe(s), initial encounter for cl... COMPARISON: None available. TECHNIQUE: AP, lateral, and oblique views of the left foot. FINDINGS: There is an oblique fracture involving the fourth proximal phalanx that extends from the proximal medial metaphysis to the distal lateral metaphysis with minimal gap proximally. There are small enthesophytes involving the distal Achilles and plantar fascial attachment on calcaneus. No other abnormalities are present. XR/XR foot LT min 3V IMPRESSION: There is an acute fracture of the fourth proximal phalanx. There are small calcaneal spurs. Electronically signed by: Julián Gamble MD 05/15/2025 09:52 AM REEMA MARADIAGA
== END 2025-05-15 09:15 | disposition home or self-care (01) ==
LOC: HO.XRAY 09:14
PROVIDERS: PCP Internal Medicine; Visit Provider Internal Medicine
DX: S92.912A Unspecified fracture of left toe(s), initial encounter for closed fracture (principal)
CPT/HCPCS: 73630

== ENCOUNTER → 2025-05-15 09:18 | Outpatient (BNV) | payer BC, SELFPAY | PROVIDERS: PCP Internal Medicine; Visit Provider Radiology Diagnostic Radiology | DX: S92.912A Unspecified fracture of left toe(s), initial encounter for closed fracture (principal); M77.32 Calcaneal spur, left foot | CPT/HCPCS: 73630 ==